=== PATIENT | male | born 1960 | race Caucasian/White ===

== ENCOUNTER → 2016-10-03 09:22 | Outpatient (CLI) | payer MEDICARE, BC ==
[2016-04-24 09:41] VITALS: BMI 20.9
--- NOTE | ~2016-10-03 | EC ---
PATIENT:MUNIRA MEYERS DATE OF SERVICE: 10/03/16 SEX: M MEDICAL RECORD: [id number] DATE OF : 56 LOCATION:[facility] AGE OF PATIENT: 56 ADMISSION DATE: 10/03/16 REFERRING PHYSICIAN: INTERPRETING PHYSICIAN: HALIMA DUFF MD ECHOCARDIOGRAM REPORT ECHO CHARGES 4 ECHO COMPLETE CLINICAL DIAGNOSIS: SOB/HTN ECHOCARDIOGRAPHIC MEASUREMENTS (adult normal given) AC root (d.<3.7cm) 3.5 LV Septum d (<1.2 cm> 1.3 Valve Excursion 2.2 LV Septum (systole) 1.5 Left Atria (s.<4.0cm> 4.8 LVPW d(<1.2cm) 1.7 RV (d.<2.3cm) 3.5 LVPW (sytole) 1.9 LV diastole(<5.6CM) 4.5 MV E-F(>70mm/sec) LV systole 2.7 LVOT Diameter 2.1 MV exc.(>10mm) 1.8 Est.ejection fraction (50-75%) Pericardial Effusion Y DOPPLER: LVIT A 80.0 E 95.0 LA RVSP 31 LVOT 105 AOP1/2T Asc. Ao 112 RVOT 82 RA PA 121 AV Gradient Peak 5.02 AV Mean 2.69 AV Area 3.5 MV Gradient Peak 6.10 MV Mean 2.28 MV Area COMMENTS: Tv Technician: Beatris CARTER Grounds Foreman:Richard Duff TAPE# PACS DATE OF SERVICE: 10/03/2016 Echocardiogram FINDINGS: 1. Left ventricular chamber size is within normal limits. Left ventricular systolic function is normal. Overall ejection fraction is estimated at 55%. 2. Left atrium, right atrium and right ventricular chamber sizes are within normal limits. 3. Valvular structures have normal structure and motion. ECHOCARDIOGRAM REPORT [id number] MUNIRA MEYERS 4. Doppler interrogation reveals mild aortic insufficiency, mild tricuspid regurgitation. 5. Large pericardial effusion is present. There does appear to be right atrial collapse with the effusion. OVERALL IMPRESSION: Large pericardial effusion with impending tamponade. TRANSINT:[id number] Voice Confirmation ID: [id number] DOCUMENT ID: [id number] HALIMA DUFF MD CC: [id number] DICTATION DATE: 10/03/161214 TANK HOOP BENDER: 10/03/162127 REG [facility] [address] [id number]
[~2016-10-03 09:22] MED LIST: ADVAIR 250/501 DISK INH; ALBUTEROL2.5 MG/3 M INH; DULERA 200 MCG8.8 GM INH; IPRAT-ALBUT 0.5-3 ML UPD; LEXAPRO5 MG PO; PLAVIX75 MG PO; PROVENTIL/2.5 MG/3 M
== END | disposition home or self-care (01) ==
LOC: D.ECHO 09:22
DX: R06.02 Shortness of breath (principal); I10 Essential (primary) hypertension